=== PATIENT | male | born 1995 | race Two or more races ===

== ENCOUNTER 2018-05-10 13:45 | Emergency (ER) | payer MEDICAID, OTHER ==
[~2018-05-10] VITALS: Ht 172.7 cm; Wt 77.1 kg
[~2018-05-10 13:45] MED LIST: DIPH25CA83 PO; HYDR28.3 TP; LORA10TA7 PO
[2018-05-10 13:50] VITALS: BP 138/68
[2018-05-10] MEDS ORDERED: KETOROLAC TROMETHAMINE INJ 60 MG/2 ML VIAL IM ONE ×2 (14:30→14:31)
== END 2018-05-10 14:44 | disposition home or self-care (01) ==
LOC: ER 13:48
DX: M54.6 Pain in thoracic spine (principal); M54.5 Low back pain; M54.2 Cervicalgia; M62.830 Muscle spasm of back; R51 Headache; V89.0XXA Person injured in unspecified motor-vehicle accident, nontraffic, initial encounter; Y93.89 Activity, other specified; Y92.410 Unspecified street and highway as the place of occurrence of the external cause; Y99.8 Other external cause status
CPT/HCPCS: 96372; 99283; A4606; J1885; Z7610

== ENCOUNTER 2019-12-09 19:28 | Emergency (ER) | payer MEDICAID, OTHER ==
[~2019-12-09] VITALS: Ht 172.7 cm; Wt 77.1 kg
[2019-12-09] MEDS ORDERED: METOCLOPRAMIDE HCL 10 MG/2 ML VIAL ONE (21:27)
[2019-12-09] MEDS ORDERED: HYDROMORPHONE 1 MG/1 ML DISP.SYRIN ONE (21:27)
[2019-12-09] MEDS ORDERED: ONDANSETRON HCL/PF 4 MG/2 ML VIAL ONE (21:27)
[2019-12-09] MEDS: ONDANSETRON HCL/PF - ER 4 MG/2 ML VIAL IV ONE (21:32)
[2019-12-09] MEDS: METOCLOPRAMIDE HCL 10 MG/2 ML VIAL IV ONE (21:33)
[2019-12-09] MEDS: HYDROMORPHONE 1 MG/1 ML DISP.SYRIN IV ONE (21:34)
[2019-12-09] MEDS: IV NS 0.9% 1,000 ML IV ONE (21:35)
--- NOTE | 2019-12-09 21:43 | NUR ---
PT RESTING COMFORTABLY IN [place]. PT VITAL SIGNS STABLE. WILL CONT TO MONITOR PT.
--- NOTE | 2019-12-09 22:28 | NUR ---
PT OK TO DISCHARGE PER DR SALINAS. IV removed. Catheter intact and site benign. Pressure and 4x4 applied to site. No bleeding noted.Patient discharged to home in stable condition. Written and verbal after care instructions given. Patient verbalizes understanding of instruction.Patient is awake and alert to self, day, and place. PT ambulatory with a steady gait
[2019-12-09 23:03] VITALS: BP 128/77
== END 2019-12-09 23:03 | disposition home or self-care (01) ==
LOC: ER 19:30
DX: R51 Headache (principal); Z79.899 Other long term (current) drug therapy
CPT/HCPCS: 96374; 96375; 99283; J1170; J2405 ×2; J2765; J7030